=== PATIENT | female | born 2000 | race Caucasian/White ===

== ENCOUNTER 2021-09-17 05:41 | Outpatient (CLI) | payer SELFPAY ==
[~2021-09-17] VITALS: Ht 157.5 cm; Wt 98.4 kg
[2021-09-17] MEDS ORDERED: LEVO1TAB79 PO (14:21)
== END 2021-09-17 15:46 ==
LOC: PREOP 05:41
PROVIDERS: ATTEND Surgery
DX: Z01.818 Encounter for other preprocedural examination (principal); K92.1 Melena

== ENCOUNTER 2021-09-24 12:49 | Day surgery (SDC) | payer OTHER ==
[~2021-09-24] VITALS: Ht 157.5 cm; Wt 98.4 kg
[~2021-09-24 12:49] MED LIST: LEVO1TAB79 PO
[2021-09-24] MEDS ORDERED: LACTATED RINGERS 1,000 ML IV STA (13:04)
[2021-09-24 13:24] VITALS: BP 143/88
--- NOTE | 2021-09-24 14:00 | Progress Note-Pre Operative ---
Pre-Operative Progress Note H&P Reviewed The H&P was reviewed, patient examined and no changes noted. Date Seen by Provider: Sep 24, 2021 Time Seen by Provider: 13:59 Date H&P Reviewed: Sep 24, 2021 Time H&P Reviewed: 13:59 Pre-Operative Diagnosis: Hematochezia YOSELYN FOREMAN DO Sep 24, 2021 14:00
[2021-09-24] MEDS ORDERED: MIDAZOLAM 2 MG/2 ML (VERSED) VIAL ONE (14:26)
[2021-09-24] MEDS ORDERED: PROPOFOL INJECTION 50 ML IV ONE (14:27)
[2021-09-24 15:06] VITALS: BP 113/66
--- NOTE | 2021-09-24 15:07 | Progress Note-Post Operative ---
Post-Operative Progess Note Surgeon (s)/Director Of Assessing (s) Surgeon YOSELYN FOREMAN DO Director Of Assessing: na Pre-Operative Diagnosis Hematochezia Post-Operative Diagnosis Normal colon Procedure & Operative Findings Date of Procedure 09/24/21 Procedure Performed/Findings Colonoscopy Anesthesia Type per TOXICOLOGIST Estimated Blood Loss Estimated blood loss (mL): None Specimens/Packing Specimens Removed None YOSELYN FOREMAN DO Sep 24, 2021 15:07
[2021-09-24 15:11] VITALS: BP 119/73
[2021-09-24 15:15] VITALS: BP 119/73
[2021-09-24 15:44] VITALS: BP 127/77
--- NOTE | 2021-09-24 15:53 | Discharge Inst-Simple/Standard ---
Discharge Inst-Standard Patient Instructions/Follow Up Plan of Care/Instructions/FU: Maria Teresa on as needed basis. If continued bleeding be seen at that time. Activity as Tolerated: Yes Discharge Diet: Regular Diet (high fiber.) YOSELYN FOREMAN DO Sep 24, 2021 15:53
[2021-09-24 16:20] VITALS: BP 127/77
--- NOTE | 2021-09-24 16:27 | Anesthesia-General Post-Op ---
MAC Patient Condition Mental Status/LOC: Same as Preop Cardiovascular: Satisfactory Nausea/Vomiting: Absent Respiratory: Satisfactory Pain: Controlled Complications: Absent Post Op Complications Complications None Follow Up Care/Instructions Patient Instructions None needed. Anesthesiology Discharge Order Discharge Order Patient is doing well, no complaints, stable vital signs, no apparent adverse anesthesia problems. No complications reported per nursing. ALLEN NEGRETE CRNA Sep 24, 2021 16:27
--- NOTE | 2021-09-24 23:50 | OPERATIVE REPORT ---
DATE OF SERVICE: 09/24/2021 PREOPERATIVE DIAGNOSIS: Hematochezia. POSTOPERATIVE DIAGNOSIS: Normal colon. PROCEDURE: Colonoscopy. SURGEON: Yoselyn Morel DO ANESTHESIA: Per SUPPLY AIDE. ESTIMATED BLOOD LOSS: None. COMPLICATIONS: None. INDICATIONS: The patient is a 21-year-old female who has been having episodes of hematochezia. She understands risks and benefits of procedure and wished to proceed. Consent was signed in the chart. DESCRIPTION OF PROCEDURE: The patient was taken to endoscopy suite, placed in left lateral recumbent position. Timeout was performed. Digital rectal exam was performed. There were no palpable polyps, masses or ulcerations. Scope was inserted in the rectum and advanced all the way to cecum with minimal difficulty. Prep was adequate. Scope was slowly retracted back. No polyps, masses or ulcerations in the cecum, ascending, transverse, descending and sigmoid colon. Once in the rectum, scope was retroflexed noting no other pathology. Scope was returned to its normal position, slowly withdrawn until completely removed. The patient tolerated procedure well without any complications. She was taken to recovery room in stable condition. RECOMMENDATIONS: The patient will need repeat colonoscopy per screening guidelines. Any issues before that be seen at that time. Job ID: [id number] DocumentID: [id number] Dictated Date: 09/24/2021 15:45:37 Axle Polisher Date: 09/24/2021 23:49:32 Dictated By: YOSELYN MOREL DO
== END 2021-09-24 16:20 | disposition home or self-care (01) ==
LOC: ENDO 12:49
PROVIDERS: ATTEND Surgery
DX: K92.1 Melena (principal); E66.01 Morbid (severe) obesity due to excess calories; M41.9 Scoliosis, unspecified; F32.A Depression, unspecified; F41.9 Anxiety disorder, unspecified; Z79.899 Other long term (current) drug therapy; Z87.891 Personal history of nicotine dependence; Z68.41 Body mass index [BMI] 40.0-44.9, adult; Z80.3 Family history of malignant neoplasm of breast; Z80.8 Family history of malignant neoplasm of other organs or systems; Z82.49 Family history of ischemic heart disease and other diseases of the circulatory system
CPT/HCPCS: 84703

== ENCOUNTER 2022-08-10 12:48 | Emergency (ER) | payer MEDICAID ==
[~2022-08-10] VITALS: Ht 158 cm; Wt 105.0 kg
--- NOTE | 2022-08-10 13:37 | ED General ---
General Chief Complaint: OB < 20 WEEKS Stated Complaint: 7 WEEKS , CRAMPING, BLEEDING Nursing Triage Note: ARRIVED VIA AMB TO ROOM 09 WITH COMPLAINTS OF ABD CRAMPING STARTING YESTERDAY WITH VAGINAL BLEEDING STARTING TODAY. PT STATES SHE IS 7 WEEKS GESTATION. Source of Information: Patient Exam Limitations: No Limitations History of Present Illness Date Seen by Provider: Aug 10, 2022 Time Seen by Provider: 13:00 Initial Comments 22-year-old female G1, P0 reportedly 7 weeks presents for abdominal cramping x2 days and vaginal bleeding started this morning. Bleeding is mild, only when she wipes. No vaginal discharge or odor. There is diffuse abdominal cramping low into her mid low back. No urinary symptoms. No changes in bowel habits. She denies any fevers or chills. Allergies and Home Medications Allergies Coded Allergies: Penicillins (Unverified Allergy, Unknown, 09/17/21) azithromycin (Unverified Allergy, Unknown, 09/17/21) Patient Home Medication List Home Medication List Reviewed: Yes Levonorgestrel-Ethin Estradiol (Vienva-28 Tablet) 1 Each Tablet, 1 EACH PO DAILY, (Reported) Entered as Reported by: ARIADNA Das [facility] on 09/17/21 1421 Review of Systems Review of Systems Constitutional: no symptoms reported EENTM: no symptoms reported Respiratory: no symptoms reported Cardiovascular: no symptoms reported Gastrointestinal: abdominal pain Genitourinary: other (vaginal bleeding) Musculoskeletal: no symptoms reported Skin: no symptoms reported Psychiatric/Neurological: No Symptoms Reported Hematologic/Lymphatic: No Symptoms Reported Immunological/Allergic: no symptoms reported Past Czpcvwp-Kxhuis-Pxsdgl Hx Patient Social History Tobacco Use?: No Substance use?: No Alcohol Use?: No Immunizations Up To Date First/Initial COVID19 Vaccinat: NO Second COVID19 Vaccination Daquan: NO Third COVID19 Vaccination Date: NO Seasonal Allergies Seasonal Allergies: No Past Medical History Surgeries: Yes Adenoidectomy, Orthopedic, Tonsillectomy Respiratory: No Cardiac: Yes Hypertension Neurological: No Last Menstrual Period: Jun 05, 2022 Genitourinary: No Gastrointestinal: No Musculoskeletal: Yes (KYPHOSIS) Scoliosis Endocrine: No HEENT: No Cancer: No Psychosocial: Yes Anxiety, Depression Integumentary: No Blood Disorders: No Family Medical History Reviewed Nursing Family Hx No Pertinent Family Hx Physical Exam Vital Signs Vital Signs - First Documented 08/10/22 12:55 Temp 36.9 Pulse 83 Resp 16 B/P (MAP) 151/119 (130) Pulse Ox 100 O2 Delivery Room Air Capillary Refill : Less Than 3 Seconds Height, Weight, BMI Height: '" Weight: lbs. oz. kg; 42.00 BMI Method: General Appearance: No Apparent Distress, WD/WN HEENT: Normal ENT Inspection, Pharynx Normal Neck: Normal Inspection, Non Tender, Supple Respiratory: Chest Non Tender, Lungs Clear, Normal Breath Sounds, No Accessory Muscle Use, No Respiratory Distress Cardiovascular: Regular Rate, Rhythm, No Edema, No Gallop, No JVD, No Murmur, Normal Peripheral Pulses Gastrointestinal: Normal Bowel Sounds, No Organomegaly, No Pulsatile Mass, Non Tender, Soft Back: Normal Inspection, No CVA Tenderness, No Vertebral Tenderness Extremity: Normal Capillary Refill, Normal Inspection, Normal Range of Motion, Non Tender, No Calf Tenderness Skin: Normal Color, Warm/Dry Progress/Results/Core Measures Suspected Sepsis SIRS Temperature: Pulse: 83 Respiratory Rate: 16 Laboratory Tests 08/10/22 14:23: White Blood Count 11.7H Blood Pressure 151 /119 Mean: 130 Laboratory Tests 08/10/22 14:23: Platelet Count 345 Results/Orders Lab Results Laboratory Tests Test 08/10/22 14:23 Range/Units White Blood Count 11.7 H 4.3-11.0 10^3/uL Red Blood Count 5.10 3.80-5.11 10^6/uL Hemoglobin 14.2 11.5-16.0 g/dL Hematocrit 43 35-52 % Mean Corpuscular Volume 84 80-99 fL Mean Corpuscular Hemoglobin 28 25-34 pg Mean Corpuscular Hemoglobin Concent 33 32-36 g/dL Red Cell Distribution Width 13.6 10.0-14.5 % Platelet Count 345 130-400 10^3/uL Mean Platelet Volume 9.4 9.0-12.2 fL Immature Granulocyte % (Auto) 1 % Neutrophils (%) (Auto) 74 42-75 % Lymphocytes (%) (Auto) 19 12-44 % Monocytes (%) (Auto) 5 0-12 % Eosinophils (%) (Auto) 1 0-10 % Basophils (%) (Auto) 0 0-10 % Neutrophils # (Auto) 8.7 H 1.8-7.8 10^3/uL Lymphocytes # (Auto) 2.2 1.0-4.0 10^3/uL Monocytes # (Auto) 0.6 0.0-1.0 10^3/uL Eosinophils # (Auto) 0.1 0.0-0.3 10^3/uL Basophils # (Auto) 0.0 0.0-0.1 10^3/uL Immature Granulocyte # (Auto) 0.1 0.0-0.1 10^3/uL Human Chorionic Gonadotropin, Quant [id number] H <5 MIU/ML My Orders Orders - ENOCH HIDALGO DO Cbc With Automated Diff (08/10/22 13:44) Hcg,Quantitative (08/10/22 13:44) Abo Rh Type (08/10/22 13:44) Vital Signs/I&O 08/10/22 12:55 Temp 36.9 Pulse 83 Resp 16 B/P (MAP) 151/119 (130) Pulse Ox 100 O2 Delivery Room Air Capillary Refill : Less Than 3 Seconds Blood Pressure Mean: 130 Departure Impression Primary Impression: Vaginal bleeding during Disposition: 01 HOME, SELF-CARE Condition: Stable Departure-Patient Inst. Referrals: LUIS CORONA (PCP) Primary Care Physician Patient Instructions: Bleeding in Early (DC) Add. Discharge Instructions: Please follow-up with your OB provider by calling to schedule an appointment. Let them know you are seen in the emergency room that had some bleeding. Return to the emergency department for any severe bleeding, pain. Follow-up with your primary physician for any nonemergent needs. All discharge instructions reviewed with patient and/or family. Voiced understanding. ENOCH HIDALGO DO Aug 10, 2022 13:37
[2022-08-10 14:47] LABS: BASOPHILS % (AUTO) 0 % (0-10); EOSINOPHILS # (AUTO) 0.1 10^3/uL (0.0-0.3); EOSINOPHILS % (AUTO) 1 % (0-10); HEMATOCRIT 43 % (35-52); HEMOGLOBIN 14.2 g/dL (11.5-16.0); LYMPHOCYTES # (AUTO) 2.2 10^3/uL (1.0-4.0); LYMPHOCYTES % (AUTO) 19 % (12-44); MEAN CORPUSCULAR HEMOGLOBIN 28 pg (25-34); MEAN CORPUSCULAR HGB CONC 33 g/dL (32-36); MEAN CORPUSCULAR VOLUME 84 fL (80-99); MEAN PLATELET VOLUME 9.4 fL (9.0-12.2); MONOCYTES # (AUTO) 0.6 10^3/uL (0.0-1.0); MONOCYTES % (AUTO) 5 % (0-12); NEUTROPHILS # (AUTO) 8.7 10^3/uL (1.8-7.8); NEUTROPHILS % (AUTO) 74 % (42-75); PLATELET COUNT 345 10^3/uL (130-400); WHITE BLOOD COUNT 11.7 10^3/uL (4.3-11.0)
[2022-08-10 15:34] VITALS: BP 149/90
== END 2022-08-10 15:37 | disposition home or self-care (01) ==
LOC: EDUNIT# 12:48 → ER 12:51
DX: O20.9 Hemorrhage in early pregnancy, unspecified (principal); Z28.310 Unvaccinated for COVID-19; Z3A.01 Less than 8 weeks gestation of pregnancy
CPT/HCPCS: 36415; 84702; 85025; 86900; 86901; 99282

== ENCOUNTER 2022-12-18 20:29 | Emergency (ER) | payer OTHER, MEDICAID ==
--- NOTE | 2022-12-18 20:42 | ED Fall/Injury ---
General Stated Complaint: FALL LEFT ARM/SHOULDER/BACK/HEAD PAIN History of Present Illness Date Seen by Provider: Dec 18, 2022 Time Seen by Provider: 20:42 Initial Comments 22-year-old female presents following a fall at work. Patient reports that she slipped on a wet floor and fell backwards. She is complaining of a little bit of pain at her left arm, shoulder, upper back and elbow however full range of motion with no obvious deformities. She also thinks she may have hit her head. She has little bit of pain in the posterior aspect of her head no loss of consciousness. No nausea vomiting dizziness or any other systemic complaints. Patient presents because she is going to be checked out. Allergies and Home Medications Allergies Coded Allergies: Penicillins (Unverified Allergy, Unknown, 09/17/21) azithromycin (Unverified Allergy, Unknown, 09/17/21) Patient Home Medication List Home Medication List Reviewed: Yes Levonorgestrel-Ethin Estradiol (Vienva-28 Tablet) 1 Each Tablet, 1 EACH PO DAILY, (Reported) Entered as Reported by: ARIADNA WATERS on 09/17/21 1421 Review of Systems Review of Systems Constitutional: no symptoms reported Eyes: No Symptoms Reported Ears, Nose, Mouth, Throat: no symptoms reported Respiratory: no symptoms reported Cardiovascular: no symptoms reported Gastrointestinal: no symptoms reported Genitourinary: no symptoms reported Musculoskeletal: see HPI Skin: no symptoms reported Psychiatric/Neurological: No Symptoms Reported Past Sbvgpwm-Fiyhxf-Tfdvhk Hx Immunizations Up To Date First/Initial COVID19 Vaccinat: NO Second COVID19 Vaccination Daquan: NO Third COVID19 Vaccination Date: NO Seasonal Allergies Seasonal Allergies: No Past Medical History Surgeries: Yes Adenoidectomy, Orthopedic, Tonsillectomy Respiratory: No Cardiac: Yes Hypertension Neurological: No Genitourinary: No Gastrointestinal: No Musculoskeletal: Yes (KYPHOSIS) Scoliosis Endocrine: No HEENT: No Cancer: No Psychosocial: Yes Anxiety, Depression Integumentary: No Blood Disorders: No Family Medical History No Pertinent Family Hx Physical Exam Vital Signs Vital Signs - First Documented 12/18/22 20:45 Temp 36.7 Pulse 87 Resp 18 B/P (MAP) 144/91 (108) Pulse Ox 99 O2 Delivery Room Air Capillary Refill : Height, Weight, BMI Height: '" Weight: lbs. oz. kg; 42.00 BMI Method: General Appearance: WD/WN, no apparent distress HEENT: PERRL/EOMI, pharynx normal, other (Minimal tenderness posterior occiput no hematoma contusion noted) Neck: non-tender, full range of motion, supple Cardiovascular: normal peripheral pulses, regular rate, rhythm Respiratory: chest non-tender, lungs clear Gastrointestinal: non tender, soft Back: no vertebral tenderness Extremities: normal range of motion, other (Minimal minimal tenderness left arm with no obvious deformity swelling or abrasion) Neurologic/Psychiatric: codifier II-XII nml as tested, no motor/sensory deficits, alert, normal mood/affect, oriented x 3 Skin: normal color, warm/dry Progress/Results/Core Measures Results/Orders Vital Signs/I&O 12/18/22 12/18/22 20:45 20:55 Temp 36.7 36.7 Pulse 87 87 Resp 18 18 B/P (MAP) 144/91 (108) 144/91 Pulse Ox 99 99 O2 Delivery Room Air Room Air Progress Progress Note : Progress Note Patient with benign physical exam as has some mild tenderness. No obvious deformities hematomas, contusions or other abnormalities. She is very minimally tender to her posterior occiput. No vertebral tenderness. Discussed imaging of both her left extremity and her CT of her head. With joint decision-making after discussion of risk and benefits she preferred to defer any imaging at this time and will return if she felt it was needed.. I did have a long discussion with her regarding return precautions. She is can use Tylenol or ibuprofen as needed. Patient was stable and discharged Departure Impression Primary Impression: Fall from slipping on slippery surface Qualified Codes: W01.0XXA - Fall on same level from slipping, tripping and s tumbling without subsequent striking against object, initial encounter Additional Impression: Mild closed head injury Qualified Codes: S09.90XA - Unspecified injury of head, initial encounter Disposition: 01 HOME, SELF-CARE Condition: Stable Departure-Patient Inst. Referrals: NO,LOCAL PHYSICIAN (PCP/Family) Primary Care Physician Patient Instructions: Minor Head Injury, Adult ED, Head Injury Observation (DC) Add. Discharge Instructions: Tylenol or ibuprofen as needed for pain. Please return to the ER with any concerns. SUDHIR ORR DO Dec 18, 2022 20:42
[2022-12-18 20:55] VITALS: BP 144/91
== END 2022-12-18 20:55 | disposition home or self-care (01) ==
LOC: EDUNIT# 20:29 → ER 20:32
DX: S09.90XA Unspecified injury of head, initial encounter (principal); Z28.310 Unvaccinated for COVID-19; W01.0XXA Fall on same level from slipping, tripping and stumbling without subsequent striking against object, initial encounter; Y92.59 Other trade areas as the place of occurrence of the external cause; Y99.0 Civilian activity done for income or pay
CPT/HCPCS: 99281